=== PATIENT | female | born 1955 | race Caucasian/White ===

== ENCOUNTER 2017-12-31 08:02 | Day surgery (SDC) | payer BC ==
[~2017-12-31 08:02] MED LIST: MITOMYCIN 40 MG VIAL IS
[2017-12-31] MEDS ORDERED: CIPROFLOXACIN 400MG/D5W 200 ML IVPB (09:30)
[2017-12-31] MEDS ORDERED: PROPOFOL 100 ML (11:22)
[2017-12-31] MEDS ORDERED: LIDOCAINE 2% (SDV) 5 ML INJ (11:23)
[2017-12-31] MEDS ORDERED: ROCURONIUM 50 MG INJ (11:23)
[2017-12-31] MEDS ORDERED: ONDANSETRON 4 MG INJ ×2 (12:35→13:08)
[2017-12-31] MEDS ORDERED: DEXAMETHASONE 4 MG/ML 1 ML INJ (12:35)
[2017-12-31] MEDS ORDERED: GLYCOPYRROLATE 0.4 MG INJ (12:39)
[2017-12-31] MEDS ORDERED: NEOSTIGMINE 3 MG/3 ML SYRINGE (12:39)
[2017-12-31] MEDS ORDERED: EPHEDrine SULFATE 50 MG/5 ML SYG IV (13:00)
[2017-12-31] MEDS ORDERED: ALBUTEROL 0.083% (NEB) 2.5 MG/3 ML AMP HHN (13:00)
[2017-12-31] MEDS ORDERED: KETOROLAC 30 MG INJ IV (13:00)
[2017-12-31] MEDS ORDERED: DIPHENHYDRAMINE 50 MG INJ IV (13:00)
[2017-12-31] MEDS ORDERED: HYDROmorphONE 1 MG/5 ML IV SYRINGE IV ×2 (13:00→13:07)
[2017-12-31] MEDS ORDERED: LABETALOL HCL 20MG INJ IV (13:00)
[2017-12-31] MEDS ORDERED: FENTAnyl 50 MCG/ML VIAL IV ×3 (13:00)
[2017-12-31] MEDS ORDERED: OXYCODONE/ACETAMINOPHEN (5/325) TAB PO (13:00)
[2017-12-31] MEDS ORDERED: METOCLOPRAMIDE 10 MG INJ IV (13:00)
[2017-12-31] MEDS ORDERED: hydrALAzine 20 MG INJ IV (13:00)
[2017-12-31] MEDS ORDERED: MEPERIDINE 25 MG INJ (13:07)
[2017-12-31] MEDS: MEPERIDINE 25 MG INJ IV (13:15)
[2017-12-31] MEDS: HYDROmorphONE 1 MG/5 ML IV SYRINGE IV ×2 (13:15→13:21)
[2017-12-31] MEDS: ONDANSETRON 4 MG INJ IV (13:15)
[2017-12-31] MEDS: OXYCODONE/ACETAMINOPHEN (5/325) TAB PO (14:52)
== END 2017-12-31 15:52 | disposition home or self-care (01) ==
LOC: SDS 08:02
DX: C67.9 Malignant neoplasm of bladder, unspecified (principal); I10 Essential (primary) hypertension; Z87.891 Personal history of nicotine dependence
CPT/HCPCS: 52235

== ENCOUNTER 2018-05-13 07:14 | Day surgery (SDC) | payer BC ==
[~2018-05-13 07:14] MED LIST changes: +CIPRO 400 MG/200 ML D5W IVPB; -MITOMYCIN 40 MG VIAL IS; +SEVOFLURANE 15 MIN
[2018-05-13] MEDS ORDERED: ROCURONIUM 50 MG INJ (08:42)
[2018-05-13] MEDS ORDERED: GLYCOPYRROLATE 0.4 MG INJ (08:42)
[2018-05-13] MEDS ORDERED: NEOSTIGMINE 3 MG/3 ML SYRINGE (08:42)
[2018-05-13] MEDS ORDERED: PROPOFOL 20 ML (08:42)
[2018-05-13] MEDS ORDERED: LIDOCAINE 2% (SDV) 5 ML INJ (08:42)
[2018-05-13] MEDS ORDERED: FENTAnyl 50 MCG/ML VIAL ×2 (08:43→11:11)
[2018-05-13] MEDS ORDERED: DEXAMETHASONE 4 MG/ML 5 ML INJ (08:43)
[2018-05-13] MEDS ORDERED: MIDAZOLAM 1 MG/ML 2 ML INJ (08:43)
[2018-05-13] MEDS ORDERED: ONDANSETRON 4 MG INJ ×3 (08:44→11:41)
[2018-05-13] MEDS: MITOMYCIN 40 MG VIAL IS (10:32)
[2018-05-13] MEDS: BELLADONNA ALK/OPIUM SUPP PR (11:50)
[2018-05-13] MEDS: ONDANSETRON 4 MG INJ IV (11:50)
[2018-05-13] MEDS: FENTAnyl 50 MCG/ML VIAL IV (11:50)
[2018-05-13] MEDS ORDERED: FENTAnyl 50 MCG/ML VIAL IV (12:00)
[2018-05-13] MEDS ORDERED: MEPERIDINE 25 MG INJ IV (12:00)
[2018-05-13] MEDS ORDERED: HYDROmorphONE 1 MG/5 ML IV SYRINGE IV ×2 (12:00)
[2018-05-13] MEDS: HYDROCODONE/APAP (5/325) TAB PO (13:41)
[2018-05-14] MEDS ORDERED: INFLUENZA VIRUS VACCINE 0.5 ML (DISPENSING) IM* (09:00)
== END 2018-05-13 15:11 | disposition home or self-care (01) ==
LOC: SDS 07:14
DX: C67.9 Malignant neoplasm of bladder, unspecified (principal); E78.5 Hyperlipidemia, unspecified
CPT/HCPCS: 52224; 88305